=== PATIENT | male | born 1980 | race Two or more races ===

== ENCOUNTER → 2025-01-15 | Outpatient (CLI) | payer MEDICAID, SELFPAY ==
--- NOTE | 2025-01-15 09:00 | XR_ITS ---
Examination: Esophagram standard 18 spot fluoroscopic films of the esophagus Fluoroscopy Upright PA chest single view Upright soft tissue lateral neck single view Date and time: January 15, 2025 0944 hours INDICATIONS: Difficulty swallowing choking one year TECHNIQUE AND FINDINGS: Upright PA chest single view demonstrates mild prominence left ventricle Soft tissue lateral neck demonstrates no significant thickening of the epiglottis no prevertebral soft tissue prominence Primary peristaltic esophageal waves are noted No constricting esophageal lesion Moderate intermittent gastroesophageal reflux Moderate esophageal hernia. There is no stricture the gastroesophageal junction IMPRESSION: Moderate intermittent gastroesophageal reflux There is no stricture at the gastroesophageal junction
== END | disposition home or self-care (01) ==
LOC: CDIM 08:54
PROVIDERS: PCP Physician Assistant; Referring Provider Physician Assistant; Visit Provider Physician Assistant
DX: K21.9 Gastro-esophageal reflux disease without esophagitis (principal)
CPT/HCPCS: 74220; A4649